=== PATIENT | female | born 2000 | race Caucasian/White ===

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

== ENCOUNTER 2018-05-23 16:43 | Emergency (ER) | payer MEDICAID ==
[2018-05-23 16:56] VITALS: BP 130/99
--- NOTE | 2018-05-23 17:24 | EDM.PDOC ---
<Arianne Holden - Last Filed: 05/23/18 18:18> ED HPI GENERAL MEDICAL PROBLEM - General Chief Complaint: Chest Pain Stated Complaint: CHEST PAINS X 1 MONTH Time Seen by Provider: 05/23/18 17:05 Source of Information: Reports: Patient History Limitations: Reports: No Limitations - History of Present Illness INITIAL COMMENTS - FREE TEXT/NARRATIVE: 18 yo female presents for chest pain that has been waxing and waning over the past month. She reports substernal and left sternal border pain, usually described as an ache 4/10 pain, but with intermittent sharp, stabbing pains that last a few seconds. She has not determined what provokes the pain. She does not have any difficulty working out, has continued staying active, denies SOB, cough, LACKEY. She has not been ill recently. She is eating and drinking normally. She is working and in school and staying active. She reports depression and anxiety but denies any other chronic medical problems. She denies any cardiac history, history of childhood asthma but no longer on any medication. She is on control pills, LMP in February, her cycle is not usually regular and she denies any chance of . Onset: Gradual Duration: Week(s): (4 weeks), Waxing/Waning Location: Reports: Chest (left sternal border) Quality: Reports: Ache, Sharp, Stabbing Severity: Moderate Improves with: Reports: Other (lightly pressing on the area) Worsens with: Reports: Other (sharp worsening pain last seconds not provoked by anything) Context: Reports: Other (cannot remember when it originally started) Associated Symptoms: Reports: No Other Symptoms Chest Pain Score (Numeric/FACES): 4 - Related Data Allergies Allergy/AdvReac Type Severity Reaction Status Date / Time No Known Allergies Allergy Verified 05/23/18 16:52 Home Meds: Home Meds Control. 05/23/18 [History] Sertraline [Zoloft] 50 mg PO DAILY 05/23/18 [History] Vistaril. 05/23/18 [History] Past Medical History - Past Health History Medical/Surgical History: Denies Medical/Surgical History Psychiatric History: Reports: Anxiety Social & Family History - Tobacco Use Smoking Status *Q: Never Smoker - Caffeine Use Caffeine Use: Reports: Coffee - Recreational Drug Use Recreational Drug Use: No ED ROS GENERAL - Review of Systems Review Of Systems: See Below Constitutional: Reports: No Symptoms. Denies: Fever, Chills, Malaise, Weakness HEENT: Reports: No Symptoms Respiratory: Reports: Pleuritic Chest Pain (intermittent). Denies: Shortness of Breath, Wheezing, Cough, Hemoptysis Cardiovascular: Reports: Chest Pain. Denies: Blood Pressure Problem, Dyspnea on Exertion, Edema, Lightheadedness, Palpitations Endocrine: Reports: No Symptoms GI/Abdominal: Reports: No Symptoms. Denies: Abdominal Pain, Constipation, Diarrhea, Nausea, Vomiting : Reports: No Symptoms Musculoskeletal: Reports: No Symptoms. Denies: Leg Pain Skin: Reports: No Symptoms Neurological: Reports: Headache (mild, intermittent x 1 month). Denies: Dizziness, Numbness, Weakness Psychiatric: Reports: No Symptoms Hematologic/Lymphatic: Reports: No Symptoms Immunologic: Reports: No Symptoms ED EXAM, GENERAL - Physical Exam Exam: See Below Exam Limited By: No Limitations General Appearance: Alert, WD/WN, No Apparent Distress Ears: Normal External Exam, Hearing Grossly Normal Head: Atraumatic, Normocephalic Neck: Normal Inspection, Supple, Non-Tender, Full Range of Motion Respiratory/Chest: No Respiratory Distress, Lungs Clear, Normal Breath Sounds, No Accessory Muscle Use, Other (chest tender to palpation along the left sternal border) Cardiovascular: Normal Peripheral Pulses, Regular Rate, Rhythm, No Edema, No Gallop, No JVD, No Murmur GI/Abdominal: Soft, Non-Tender Extremities: Normal Inspection, Normal Range of Motion, Non-Tender, No Pedal Edema Neurological: Alert, Oriented, Normal Cognition, Normal Gait, No Motor/Sensory Deficits Psychiatric: Normal Affect, Normal Mood Skin Exam: Warm, Dry, Intact, Normal Color, No Rash Course - Vital Signs Last Recorded V/S: Last Vital Signs Temp 98.8 F 05/23/18 16:53 Pulse 78 05/23/18 16:53 Resp 17 05/23/18 16:53 BP 130/99 H 05/23/18 16:53 Pulse Ox 100 05/23/18 16:53 - Orders/Labs/Meds Orders: Active Orders 24 hr Category Date Time Status CXR [Chest 1V Frontal] [CR] Stat Exams 05/23/18 17:16 Taken Sodium Chloride 0.9% [Normal Saline] 100 ml Med 05/23/18 18:45 Active IV ASDIRECTED Sodium Chloride 0.9% [Saline Flush] Med 05/23/18 18:44 Active 10 ml FLUSH ONETIME PRN Medication Orders Sodium Chloride (Normal Saline) 100 mls @ 65 mls/hr IV ASDIRECTED GWENDOLYN Last Admin: 05/23/18 19:12 Dose: 65 mls/hr Sodium Chloride (Saline Flush) 10 ml FLUSH ONETIME PRN PRN Reason: IV FLUSH Last Admin: 05/23/18 19:12 Dose: 10 ml Labs: Laboratory Tests 05/23/18 05/23/18 05/23/18 Range/Units 17:30 17:30 17:30 WBC 8.12 (3.98-10.04) K/mm3 RBC 4.15 (3.98-5.22) M/mm3 Hgb 12.0 (11.2-15.7) gm/L Hct 36.5 (34.1-44.9) % MCV 88.0 (79.4-94.8) fl MCH 28.9 (25.6-32.2) pg MCHC 32.9 (32.2-35.5) g/dl RDW Std Deviation 44.0 (36.4-46.3) fL Plt Count 390 H (182-369) K/mm3 MPV 9.7 (9.4-12.3) fl Neut % (Auto) 54.2 (34.0-71.1) % Lymph % (Auto) 36.7 (19.3-51.7) % Bent % (Auto) 6.2 (4.7-12.5) % Eos % (Auto) 2.6 (0.7-5.8) Baso % (Auto) 0.2 (0.1-1.2) % Neut # (Auto) 4.40 (1.56-6.13) K/mm3 Lymph # (Auto) 2.98 (1.18-3.74) K/mm3 Bent # (Auto) 0.50 H (0.24-0.36) K/mm3 Eos # (Auto) 0.21 (0.04-0.36) K/mm3 Baso # (Auto) 0.02 (0.01-0.08) K/mm3 D-Dimer, Quantitative 0.59 H (0.19-0.50) mg/L Sodium 140 (136-145) mEq/L Potassium 3.4 L (3.5-5.1) mEq/L Chloride 105 (98-107) mEq/L Carbon Dioxide 27 (21-32) mEq/L Anion Gap 11.4 (5-15) BUN 12 (7-18) mg/dL Creatinine 0.7 (0.55-1.02) mg/dL Est Cr Clr Drug Dosing 110.70 mL/min Estimated GFR (MDRD) > 60 (>60) mL/min BUN/Creatinine Ratio 17.1 (14-18) Glucose 78 (74-106) mg/dL Calcium 8.6 (8.5-10.1) mg/dL Total Bilirubin 0.2 (0.2-1.0) mg/dL AST 18 (15-37) U/L ALT 12 L (14-59) U/L Alkaline Phosphatase 88 (46-116) U/L Troponin I < 0.017 (0.00-0.056) ng/mL C-Reactive Protein (<1.0) mg/dL Total Protein 7.3 (6.4-8.2) g/dl Albumin 3.8 (3.4-5.0) g/dl Globulin 3.5 gm/dL Albumin/Globulin Ratio 1.1 (1-2) HCG, Quant < 1.0 mIU/mL 05/23/18 Range/Units 17:30 WBC (3.98-10.04) K/mm3 RBC (3.98-5.22) M/mm3 Hgb (11.2-15.7) gm/L Hct (34.1-44.9) % MCV (79.4-94.8) fl MCH (25.6-32.2) pg MCHC (32.2-35.5) g/dl RDW Std Deviation (36.4-46.3) fL Plt Count (182-369) K/mm3 MPV (9.4-12.3) fl Neut % (Auto) (34.0-71.1) % Lymph % (Auto) (19.3-51.7) % Bent % (Auto) (4.7-12.5) % Eos % (Auto) (0.7-5.8) Baso % (Auto) (0.1-1.2) % Neut # (Auto) (1.56-6.13) K/mm3 Lymph # (Auto) (1.18-3.74) K/mm3 Bent # (Auto) (0.24-0.36) K/mm3 Eos # (Auto) (0.04-0.36) K/mm3 Baso # (Auto) (0.01-0.08) K/mm3 D-Dimer, Quantitative (0.19-0.50) mg/L Sodium (136-145) mEq/L Potassium (3.5-5.1) mEq/L Chloride (98-107) mEq/L Carbon Dioxide (21-32) mEq/L Anion Gap (5-15) BUN (7-18) mg/dL Creatinine (0.55-1.02) mg/dL Est Cr Clr Drug Dosing mL/min Estimated GFR (MDRD) (>60) mL/min BUN/Creatinine Ratio (14-18) Glucose (74-106) mg/dL Calcium (8.5-10.1) mg/dL Total Bilirubin (0.2-1.0) mg/dL AST (15-37) U/L ALT (14-59) U/L Alkaline Phosphatase (46-116) U/L Troponin I (0.00-0.056) ng/mL C-Reactive Protein 1.0 (<1.0) mg/dL Total Protein (6.4-8.2) g/dl Albumin (3.4-5.0) g/dl Globulin gm/dL Albumin/Globulin Ratio (1-2) HCG, Quant mIU/mL Meds: Medications Generic Name Dose Route Start Last Admin Trade Name Freq PRN Reason Stop Dose Admin Sodium Chloride 100 mls @ 65 mls/hr 05/23/18 18:45 05/23/18 19:12 Normal Saline IV 65 mls/hr ASDIRECTED GWENDOLYN Administration Sodium Chloride 10 ml 05/23/18 18:44 05/23/18 19:12 Saline Flush FLUSH 10 ml ONETIME PRN Administration IV FLUSH Discontinued Medications Generic Name Dose Route Start Last Admin Trade Name Freq PRN Reason Stop Dose Admin Iopamidol 100 ml 05/23/18 18:44 05/23/18 19:12 Isovue-370 (76%) IVPUSH 05/23/18 18:45 100 ml ONETIME ONE Administration - Re-Assessments/Exams Free Text/Narrative Re-Assessment/Exam: 05/23/18 18:07 D-Dimer 0.59, CBC unremarkable, waiting on all other labs and CXR 05/23/18 18:18 Troponin negative, Hcg negative, CRP-negative. CXR pending Departure - Departure Disposition: Home, Self-Care 01 Clinical Impression: Costochondritis Instructions: Costochondritis, [id number] Referrals: Deanna Dhillon NP [Primary Care Provider] - Forms: ED Department Discharge Additional Instructions: Take Tylenol and ibuprofen in alternating fashion for pain. Refrain from any activities that cause worsening discomfort. Follow-up with your primary care provider in the next week or so if symptoms persist. Return to the ED if you develop any new or worsening symptoms. - My Orders Last 24 Hours: My Active Orders 05/23/18 18:44 Sodium Chloride 0.9% [Saline Flush] 10 ml FLUSH ONETIME PRN 05/23/18 18:45 Sodium Chloride 0.9% [Normal Saline] 100 ml IV ASDIRECTED - Assessment/Plan Last 24 Hours: My Active Orders 05/23/18 18:44 Sodium Chloride 0.9% [Saline Flush] 10 ml FLUSH ONETIME PRN 05/23/18 18:45 Sodium Chloride 0.9% [Normal Saline] 100 ml IV ASDIRECTED <Petey Morel O - Last Filed: 05/23/18 19:59> Course - Re-Assessments/Exams Free Text/Narrative Re-Assessment/Exam: Agree with history of present illness and physical findings by Arianne Naqvi. I have physically examined the patient myself. Treatment plan and studies to be ordered were discussed with me. I agree with plan. CT of the chest impression: No findings of PE. Other portions of the CT study of the chest appear within normal limits. Cause of discomfort is musculoskeletal in nature. Most likely costochondritis. Treatment will consist of anti-inflammatories on an outpatient basis and refraining from any activities that cause worsening pain. The patient remained hemodynamically stable while under my care in the E.D. I discussed the concerning symptoms for which to return to the E.D. with the patient. The patient verbalized understanding. All questions were answered. Departure - Departure Time of Disposition: 19:58 Condition: Good
[2018-05-23] MEDS ORDERED: Sodium Chloride 0.9% 10 ML Syringe FLUSH PRN (18:44)
[2018-05-23] MEDS ORDERED: Iopamidol 755 Mg/ML 100 ML Bottle IVPUSH ONE (18:44)
[2018-05-23] MEDS ORDERED: Sodium Chloride 0.9% 100 ML IV SCH (18:45)
--- NOTE | 2018-05-23 19:39 | CT ---
CT chest Technique: Multiple axial sections were obtained from above the lung apices inferiorly through the lung bases. Intravenous contrast was utilized. Study has been performed as a pulmonary angiogram protocol. Findings: Pulmonary arteries are well-opacified. No filling defects are seen to indicate pulmonary embolism. Mediastinum and hilar regions show no adenopathy or mass. No pericardial thickening is seen. Small portion of the visualized upper abdominal structures are within normal limits. Lungs show no acute parenchymal densities. No pleural effusions or pneumothorax is seen. Bone window settings were obtained which appear within normal limits for the patient's age. Impression: 1. No findings of pulmonary embolism. 2. Other portions of the CT study of the chest appear within normal limits. Diagnostic code #1
--- NOTE | 2018-05-24 06:53 | CR ---
Chest: Portable view of the chest was obtained. Comparison: No previous study. Heart size and mediastinum are within normal limits. Lungs are clear. Mild scoliosis is noted within the spine. Impression: 1. Scoliosis. Nothing acute is seen on portable chest x-ray. Diagnostic code #2
== END 2018-05-23 20:08 | disposition home or self-care (01) ==
LOC: JD.ED 16:43
DX: M94.0 Chondrocostal junction syndrome [Tietze] (principal)
CPT/HCPCS: 36415; 71045; 71275; 80053; 84484; 84702; 85025; 85379; 86140; 99285; J7030; J7050; Q9967

== ENCOUNTER 2021-06-22 16:01 | Emergency (ER) | payer MEDICAID ==
[2021-06-22 16:12] VITALS: BP 123/69; PULSE 62
--- NOTE | 2021-06-22 16:35 | EDM.PDOC ---
<Alton Stewart - Last Filed: 06/22/21 16:45> ED HPI GENERAL MEDICAL PROBLEM - General Chief Complaint: Chest Pain Stated Complaint: CHEST PAIN/SOB Time Seen by Provider: 06/22/21 16:34 - History of Present Illness INITIAL COMMENTS - FREE TEXT/NARRATIVE: 21-year-old female presents the emergency room with chest pain. This is been going on since yesterday. Patient is anxious but the pain is slightly different than she usually gets with her anxiety. She has a hard time describing it it is substernal. Does not worse with deep breathing. Pain is more of a dull pain pressure sensation. Patient is not coughing. She denies any other complaints at this time Left Chest Pain Score (Numeric/FACES): 3 - Related Data Allergies Allergy/AdvReac Type Severity Reaction Status Date / Time No Known Allergies Allergy Verified 06/22/21 16:12 Home Meds: Home Meds ALPRAZolam [Xanax] 0.25 mg PO DAILY PRN 06/22/21 [History] Lisdexamfetamine [Vyvanse] 30 mg PO DAILY 06/22/21 [History] SUMAtriptan [Imitrex] 50 mg PO DAILY PRN 06/22/21 [History] lamoTRIgine [Lamictal] 50 mg PO DAILY 06/22/21 [History] Past Medical History - Past Health History Medical/Surgical History: Denies Medical/Surgical History Musculoskeletal History: Reports: Back Pain, Chronic Neurological History: Reports: Migraines Psychiatric History: Reports: ADHD, Anxiety, Bipolar Social & Family History - Caffeine Use Caffeine Use: Reports: Energy Drinks - Recreational Drug Use Recreational Drug Use: Yes Recreational Drug Type: Reports: Marijuana/Hashish ED ROS GENERAL - Review of Systems Review Of Systems: See Below Constitutional: Reports: No Symptoms HEENT: Reports: No Symptoms Respiratory: Reports: No Symptoms Cardiovascular: Reports: Chest Pain. Denies: Palpitations Endocrine: Reports: No Symptoms GI/Abdominal: Reports: No Symptoms ED EXAM, GENERAL - Physical Exam Exam: See Below Exam Limited By: No Limitations General Appearance: Alert, No Apparent Distress Head: Atraumatic, Normocephalic Neck: Normal Inspection, Supple, Non-Tender, Full Range of Motion Respiratory/Chest: No Respiratory Distress, Lungs Clear, Normal Breath Sounds Cardiovascular: Regular Rate, Rhythm, No Edema, No Murmur GI/Abdominal: Normal Bowel Sounds, Soft, Non-Tender Back Exam: Normal Inspection. No: CVA Tenderness (L), CVA Tenderness (R), Paraspinal Tenderness, Vertebral Tenderness Extremities: Normal Inspection, No Pedal Edema Neurological: Alert, Oriented, Normal Cognition Departure - Departure Disposition: Home, Self-Care 01 Clinical Impression: Chest wall pain - Discharge Information Instructions: Chest Wall Pain, [id number] Referrals: Deanna Lindo NP [Primary Care Provider] - Forms: ED Department Discharge Additional Instructions: You were evaluated in the ER today for your chest pain. Laboratory evaluation demonstrated no sign of cardiac etiology, your EKG showed no sign of acute ischemia that would suggest a heart attack. This is most likely musculoskeletal chest wall pain, you might try 500 mg Tylenol or 600 mg ibuprofen every 6 hours as needed for ongoing pain management. Do not exceed 4000 mg Tylenol or 3200 mg ibuprofen in a 24-hour time span. Do not hesitate to return to the ER at any time if symptoms change or worsen. Sepsis Event Note (ED) - Evaluation Sepsis Screening Result: No Definite Risk <Elisha Jean V - Last Filed: 06/22/21 20:26> Course - Vital Signs Last Recorded V/S: Last Vital Signs Temp 97.9 F 06/22/21 16:09 Pulse 62 06/22/21 16:09 Resp 16 06/22/21 16:09 BP 123/69 06/22/21 16:09 Pulse Ox 100 06/22/21 16:09 - Orders/Labs/Meds Orders: Active Orders 24 hr Category Date Time Status EKG Documentation Completion [RC] STAT Care 06/22/21 16:43 Active Labs: Laboratory Tests 06/22/21 06/22/21 06/22/21 Range/Units 17:30 19:05 19:05 WBC 7.38 (3.98-10.04) K/mm3 RBC 3.99 (3.98-5.22) M/mm3 Hgb 12.3 (11.2-15.7) gm/dl Hct 36.5 (34.1-44.9) % MCV 91.5 D (79.4-94.8) fl MCH 30.8 (25.6-32.2) pg MCHC 33.7 (32.2-35.5) g/dl RDW Std Deviation 41.0 (36.4-46.3) fL Plt Count 420 H (182-369) K/mm3 MPV 9.6 (9.4-12.3) fl Neut % (Auto) 61.4 (34.0-71.1) % Lymph % (Auto) 33.9 (19.3-51.7) % Morris % (Auto) 4.1 L (4.7-12.5) % Eos % (Auto) 0.4 L (0.7-5.8) Baso % (Auto) 0.1 (0.1-1.2) % Neut # (Auto) 4.53 (1.56-6.13) K/mm3 Lymph # (Auto) 2.50 (1.18-3.74) K/mm3 Morris # (Auto) 0.30 (0.24-0.36) K/mm3 Eos # (Auto) 0.03 L (0.04-0.36) K/mm3 Baso # (Auto) 0.01 (0.01-0.08) K/mm3 PT 11.6 (9.7-12.0) SECONDS INR 1.09 APTT 28.8 (21.7-31.4) SECONDS D-Dimer, Quantitative 0.21 (0.19-0.50) mg/L Sodium (136-145) mEq/L Potassium (3.5-5.1) mEq/L Chloride (98-107) mEq/L Carbon Dioxide (21-32) mEq/L Anion Gap (5-15) BUN (7-18) mg/dL Creatinine (0.55-1.02) mg/dL Est Cr Clr Drug Dosing mL/min Estimated GFR (MDRD) (>60) mL/min BUN/Creatinine Ratio (14-18) Glucose (70-99) mg/dL Calcium (8.5-10.1) mg/dL Total Bilirubin (0.2-1.0) mg/dL AST (15-37) U/L ALT (14-59) U/L Alkaline Phosphatase (46-116) U/L Total Protein (6.4-8.2) g/dl Albumin (3.4-5.0) g/dl Globulin gm/dL Albumin/Globulin Ratio (1-2) HCG, Qual (NEGATIVE) SARS-CoV-2 RNA (GISSELL) Negative (NEGATIVE) 06/22/21 06/22/21 Range/Units 19:05 19:05 WBC (3.98-10.04) K/mm3 RBC (3.98-5.22) M/mm3 Hgb (11.2-15.7) gm/dl Hct (34.1-44.9) % MCV (79.4-94.8) fl MCH (25.6-32.2) pg MCHC (32.2-35.5) g/dl RDW Std Deviation (36.4-46.3) fL Plt Count (182-369) K/mm3 MPV (9.4-12.3) fl Neut % (Auto) (34.0-71.1) % Lymph % (Auto) (19.3-51.7) % Morris % (Auto) (4.7-12.5) % Eos % (Auto) (0.7-5.8) Baso % (Auto) (0.1-1.2) % Neut # (Auto) (1.56-6.13) K/mm3 Lymph # (Auto) (1.18-3.74) K/mm3 Morris # (Auto) (0.24-0.36) K/mm3 Eos # (Auto) (0.04-0.36) K/mm3 Baso # (Auto) (0.01-0.08) K/mm3 PT (9.7-12.0) SECONDS INR APTT (21.7-31.4) SECONDS D-Dimer, Quantitative (0.19-0.50) mg/L Sodium 142 (136-145) mEq/L Potassium 3.6 (3.5-5.1) mEq/L Chloride 105 (98-107) mEq/L Carbon Dioxide 28 (21-32) mEq/L Anion Gap 12.6 (5-15) BUN 6 L (7-18) mg/dL Creatinine 0.8 (0.55-1.02) mg/dL Est Cr Clr Drug Dosing 94.44 mL/min Estimated GFR (MDRD) > 60 (>60) mL/min BUN/Creatinine Ratio 7.5 L (14-18) Glucose 84 (70-99) mg/dL Calcium 8.6 (8.5-10.1) mg/dL Total Bilirubin 0.3 (0.2-1.0) mg/dL AST 14 L (15-37) U/L ALT 13 L (14-59) U/L Alkaline Phosphatase 75 (46-116) U/L Total Protein 7.1 (6.4-8.2) g/dl Albumin 3.9 (3.4-5.0) g/dl Globulin 3.2 gm/dL Albumin/Globulin Ratio 1.2 (1-2) HCG, Qual Negative (NEGATIVE) SARS-CoV-2 RNA (GISSELL) (NEGATIVE) Meds: Medications Discontinued Medications Generic Name Dose Route Start Last Admin Trade Name Freq PRN Reason Stop Dose Admin Lorazepam 1 mg 06/22/21 16:43 06/22/21 17:29 Lorazepam 1 Mg Tab PO 06/22/21 16:44 1 mg ONETIME ONE Administration - Re-Assessments/Exams Free Text/Narrative Re-Assessment/Exam: 06/22/21 20:23 I did go over this patient with Dr. Stewart, as ER has gotten extremely busy, and he has to transfer to other patients out. I did go over the labs, and nothing is remarkable for today's purposes. Did go over the labs with the patient, and she verbalized understanding. Does appear to be some sort of chest wall discomfort/tenderness, we will have her maybe do some Tylenol or ibuprofen every 6 hours as needed for ongoing management see if this helps and have her return to the ER if it is not getting better, or seems to worsen. Departure - Departure Time of Disposition: 20:24 Condition: Good - Discharge Information *PRESCRIPTION DRUG MONITORING PROGRAM REVIEWED*: No *COPY OF PRESCRIPTION DRUG MONITORING REPORT IN PATIENT CHARI: No Sepsis Event Note (ED) - Focused Exam Vital Signs: Vital Signs Temp Pulse Resp BP Pulse Ox 06/22/21 16:09 97.9 F 62 16 123/69 100
[2021-06-22] MEDS ORDERED: LORazepam 1 MG Tab PO ONE (16:43)
--- NOTE | 2021-06-22 17:17 | CR ---
Chest: Portable view of the chest was obtained. Comparison: Prior chest CT study of 05/23/18 and chest x-ray of 05/23/18. Heart size and mediastinum are normal. Lungs are clear with no acute parenchymal change. Slight scoliosis is noted within the spine. Impression: 1. Slight scoliosis within the spine. 2. Nothing acute is seen on portable chest x-ray. Diagnostic code #2
== END 2021-06-22 20:30 | disposition home or self-care (01) ==
LOC: JD.ED 16:01
DX: R07.89 Other chest pain (principal); Z20.822 Contact with and (suspected) exposure to COVID-19
CPT/HCPCS: 36415; 71045; 80053; 84703; 85025; 85379; 85610; 85730; 87635; 93005; 99285; A9270; 99283; U0002

== ENCOUNTER 2021-10-13 23:39 | Emergency (ER) | payer MEDICAID ==
[2021-10-13 23:58] VITALS: BP 124/88; PULSE 99
[2021-10-14] MEDS ORDERED: Lidocaine 1% 10 ML MDV INJECT ONE (00:25)
[2021-10-14] MEDS ORDERED: Bupivacaine 0.5% 10 ML SDV INJECT ONE (00:25)
[2021-10-14] MEDS ORDERED: Diphtheria,Pertussis(Acell),Tetanus Vaccine 0.5 ML Syringe IM ONE ×2 (00:25→01:07)
--- NOTE | 2021-10-14 00:35 | EDM.PDOC ---
ED HPI GENERAL MEDICAL PROBLEM - General Chief Complaint: Laceration Stated Complaint: THUMB LAC Time Seen by Provider: 10/13/21 23:54 Source of Information: Reports: Patient, Significant Other (Fianc) History Limitations: Reports: No Limitations - History of Present Illness INITIAL COMMENTS - FREE TEXT/NARRATIVE: Ms. Kay is a very pleasant 21-year-old woman who now presents the ED with a laceration to the dorsal aspect of her left thumb that she states she accidentally incurred with an X-Acto knife around 23:30 last night. She is otherwise uninjured. Other than wrapping the finger, no home treatment was applied prior to coming to the ED. Here in the ED, the patient is found to be hemodynamically stable, afebrile, saturating 99% on room air. She appears to be comfortable, in no acute distress. Prior to last night's thumb injury, the patient denies having a recent fever, chills, sore throat, ear pain, nasal or sinus congestion, cough, dyspnea, chest pain, palpitations, nausea, vomiting, constipation, diarrhea, abdominal pain, urinary symptoms, recent weight gain or weight loss, recent bloody bowel movements or black bowel movements, recent joint aches, headaches, or rashes. The patient does not recall when her last tetanus vaccination was. She is agreeable to receive 1 here in the ED. I reviewed the PMHx/PSHx/SocHx, which was reviewed with the patient by the RN. The patient's PCP is Deanna Lindo NP. She has not received a COVID vaccination, nor an influenza vaccination this season. - Related Data Allergies Allergy/AdvReac Type Severity Reaction Status Date / Time No Known Allergies Allergy Verified 10/13/21 23:53 Home Meds: Home Meds ALPRAZolam [Xanax] 0.25 mg PO DAILY PRN 06/22/21 [History] Lisdexamfetamine [Vyvanse] 30 mg PO DAILY 06/22/21 [History] SUMAtriptan [Imitrex] 50 mg PO DAILY PRN 06/22/21 [History] lamoTRIgine [Lamictal] 50 mg PO DAILY 06/22/21 [History] Past Medical History Musculoskeletal History: Reports: Back Pain, Chronic Neurological History: Reports: Migraines Psychiatric History: Reports: ADHD, Anxiety, Bipolar Social & Family History - Tobacco Use Tobacco Use Status *Q: Never Tobacco User - Caffeine Use Caffeine Use: Reports: Energy Drinks ED ROS GENERAL - Review of Systems Review Of Systems: Comprehensive ROS is negative, except as noted in HPI. ED EXAM, SKIN/RASH Exam: See Below Exam Limited By: No Limitations General Appearance: Alert, WD/WN, No Apparent Distress Extremities: Other (There is an approximately 1.5 cm curvilinear laceration to the dorsal aspect of the patient's left thumb, over the proximal phalanx, not involving either joint. The wound is not currently bleeding. Good extensor strength to the thumb. Neurovascular status of the finger is intact.) ED SKIN PROCEDURES - Laceration/Wound Repair Left Hand Appearance: Subcutaneous, Linear, Clean Distal NVT: Neuro & Vascular Intact, No Tendon Injury Anesthetic Type: Local Local Anesthesia - Lidocaine (Xylocaine): 1% Plain (50:50 admixture) Local Anesthesia - Bupivicaine (Marcaine): 0.5% Plain (50:50 admixture) Local Anesthetic Volume: 1cc Skin Prep: Providone-Iodine (Betadine) Exploration/Debridement/Repair: Wound Explored, In a Bloodless Field, Explored to Base, No Foreign Material Found Closed with: Sutures Lac/Wound length In cm: 1.8 Suture Size: 3-0 # of Sutures: 6 Suture Type: Nylon (Ethilon), Running, Simple Drain Placement: No Sterile Dressing Applied: Nurse Tetanus Status Addressed: Yes Complications: No Course - Vital Signs Last Recorded V/S: Last Vital Signs Temp 36.4 C 10/13/21 23:53 Pulse 99 10/13/21 23:53 Resp 14 10/13/21 23:53 BP 124/88 10/13/21 23:53 Pulse Ox 99 10/13/21 23:53 - Orders/Labs/Meds Meds: Medications Discontinued Medications Generic Name Dose Route Start Last Admin Trade Name Freq PRN Reason Stop Dose Admin Bupivacaine HCl 10 ml 10/14/21 00:25 10/14/21 01:01 Bupivacaine 0.5% 10 Ml Sdv INJECT 10/14/21 00:26 10 ml ONETIME ONE Administration Diphtheria/Tetanus/Acell Pertussis 0.5 ml 10/14/21 00:25 10/14/21 01:07 Diphtheria,Pertussis(Acell),Tetanus Vaccine 0.5 Ml Syringe IM 10/14/21 00:26 Not Given .ONCE ONE Diphtheria/Tetanus/Acell Pertussis 0.5 ml 10/14/21 01:07 10/14/21 01:23 Diphtheria,Pertussis(Acell),Tetanus Vaccine 0.5 Ml Syringe IM 10/14/21 01:08 0.5 ml .ONCE ONE Administration Lidocaine HCl 10 ml 10/14/21 00:25 10/14/21 01:01 Lidocaine 1% 10 Ml Mdv INJECT 10/14/21 00:26 10 ml ONETIME ONE Administration - Re-Assessments/Exams Free Text/Narrative Re-Assessment/Exam: 10/14/21 01:41 After irrigation of the wound by Deedee ARMSTORNG, the skin around the wound was prepped with Betadine, and a sterile field was established in the usual fashion. The wound was infiltrated with a small quantity of a 50-50 admixture of lidocaine 1% without epinephrine and bupivacaine 0.5% without epinephrine, to good anesthetic effect. The wound was then closed with 6 running sutures using 3-0 Ethilon, to good cosmetic effect. The patient tolerated the procedure well. The sutures should be ready for removal by next 10/21/2021. The patient was given a tetanus vaccination. Departure - Departure Time of Disposition: 01:42 Disposition: Home, Self-Care 01 Condition: Good Clinical Impression: Laceration of left thumb - Discharge Information *PRESCRIPTION DRUG MONITORING PROGRAM REVIEWED*: Not Applicable *COPY OF PRESCRIPTION DRUG MONITORING REPORT IN PATIENT CHARI: Not Applicable Instructions: Laceration Care, Adult Referrals: Deanna Lindo NP [Primary Care Provider] - Forms: ED Department Discharge Additional Instructions: You were seen in the emergency room after accidentally cutting the back of your left thumb with an X-Acto knife earlier [facility]. Your wound was closed with 6 sutures in the ER. Keep the wound clean with ordinary soap and water when you bathe. Pat dry, then apply a sterile dressing, daily. Do not apply antibiotic ointment. You may take [id number] Tylenol or ibuprofen as needed for discomfort. The sutures should be ready for removal by 10/21/2021. They can be removed at the walk-in clinic, by a nurse at your doctor's office, or in the ER. It is highly unlikely that the wound will become infected, but if there is any concern of an infection, such as significant redness, swelling, inordinate pain, or drainage, please do not hesitate to return to the ER for reevaluation. *You received a tetanus vaccination during your ER visit.* Sepsis Event Note (ED) - Evaluation Sepsis Screening Result: No Definite Risk
== END 2021-10-14 02:03 | disposition home or self-care (01) ==
LOC: JD.ED 23:39
DX: S61.012A Laceration without foreign body of left thumb without damage to nail, initial encounter (principal); Z23 Encounter for immunization; W26.0XXA Contact with knife, initial encounter
CPT/HCPCS: 12001; 90471; 90715; 99282; J3490; 99283